=== PATIENT | male | born 1955 | race Caucasian/White ===

== ENCOUNTER 2018-02-03 07:00 | Day surgery (SDC) | payer OTHER ==
--- NOTE | 2018-02-01 15:40 | RAD REPORT ---
EXAM DESCRIPTION: RAD - Chest Pa And Lat (2 Views) - 02/01/2018 3:35 pm CLINICAL HISTORY: Coronary artery disease Chest pain. COMPARISON: No comparisons FINDINGS: The lungs are clear. The heart is normal in size. No displaced fractures. IMPRESSION: No acute or concerning finding suspected.
[2018-02-01 15:49] LABS: Absolute Lymphocytes (CBC) 1.4 K/uL (0.7-4.9); Absolute Monocytes 0.6 K/uL (0.1-1.3); Absolute Neutrophil 2.3 K/uL (1.8-8.0); Basophils % 1.1 % (0-1.3); Eosinophils % 8.7 % (0-4.4); Hematocrit 38.1 % (39.6-49.0); Lymphocytes % 29.7 % (15.3-44.8); MCH 30.9 pg (27.0-35.0); MCV 90.2 fL (80-100); MPV 8.7 fL (7.6-11.3); Monocytes % 13.2 % (3.3-12.3); RBC Red Blood Cell Count 4.23 M/uL (4.33-5.43)
[2018-02-01 16:06] LABS: BUN Blood Urea Nitrogen 9 mg/dL (6-20); Bicarbonate 27 mEq/L (21-31); Glucose Level 91 mg/dL (65-120); Potassium 4.1 mEq/L (3.6-5.0); Sodium Level 140 mEq/L (135-145)
[2018-02-01 16:07] LABS: Protime INR 0.92
--- OUTSIDE RECORDS SUMMARY | 2018-02-03 07:09 | XMS REPORT | Clinical Summary ---
:1955 Author Organization [facility] Address [address] [place] [address] Phone Care Team Providers Name Role Phone Unavailable Primary Care Provider Unavailable Allergies Active Allergy Reactions Severity Noted Date Comments Penicillins Other (See Comments) High 12/23/2017 unknown Current Medications Prescription Sig. Disp. Refills Start Date End Date Status simvastatin (ZOCOR) Take 20 mg by Active 20 MG tablet mouth nightly. isosorbide Take 30 mg by Active mononitrate (IMDUR) mouth daily. 30 MG 24 hr tablet amLODIPine Take 5 mg by Active (NORVASC) 5 MG mouth 2 (two) tablet times daily. clopidogrel Take 75 mg by Active (PLAVIX) 75 mg mouth daily. tablet metoprolol Take 50 mg by Active (TOPROL-XL) 50 MG mouth daily. 24 hr tablet aspirin 81 MG Take 81 mg by Active chewable tablet mouth daily. escitalopram Take 20 mg by Active oxalate (LEXAPRO) mouth daily. 20 MG tablet pantoprazole Take 40 mg by Active (PROTONIX) 40 MG mouth daily. tablet meloxicam (MOBIC) Take 15 mg by Active 15 MG tablet mouth daily. codeine-guaifenesin Take 5 mLs by Active (GUAIFENESIN AC) mouth 3 10-100 mg/5 mL (three) times liquid daily as needed for Cough. levoFLOXacin Take 500 mg 12/29/2017 Discontinued (LEVAQUIN) 500 MG by mouth tablet daily. doxycycline Take 1 14 capsule 0 12/29/2017 01/05/2018 (MONODOX) 100 MG capsule (100 capsule mg total) by mouth every 12 (twelve) hours for 7 days. Active Problems Problem Noted Date Bleeding from wound 12/30/2017 Abscess of left groin 12/26/2017 Staph aureus infection 12/26/2017 Hematoma 12/25/2017 Left groin mass 12/24/2017 Encounters Date Type Specialty Care Team Description 12/30/2017 - Emergency General Internal Steve Ng MD Bleeding from wound 12/31/2017 Medicine Leoncio Tyler, (Primary Dx);Abscess Shasha Arce MD of left groin;Left groin mass;Hematoma 12/25/2017 Anesthesia Event ReizerKelsey, WILLIAM 12/25/2017 Procedure Pass 12/25/2017 Surgery Lupillo Barr,GROIN MD Adilson 12/23/2017 - Hospital Encounter Cardiology Demetris, Left groin mass 12/29/2017 MD Kiki (Primary Dx);Left Jean-Claude, [place] groin pain;Coronary MD Kayla artery disease Celeste Enciso MD heart without angina pectoris, unspecified vessel or lesion type;Essential hypertension;Hyperlip idemia, unspecified hyperlipidemia type;Hematoma;Abscess of left groin after 02/02/2017 Social History Tobacco Use Types Packs/Day Years Used Date Never Smoker Smokeless Tobacco: Never Used Alcohol Use Drinks/Week oz/Week Comments Yes Sex Assigned at Date Recorded Not on file Last Filed Vital Signs Vital Sign Reading Time Taken Blood Pressure 121/80 12/31/2017 4:05 PM CDT Pulse 70 12/31/2017 4:05 PM CDT Temperature 35.6 C (96.1 F) 12/31/2017 4:05 PM CDT Respiratory Rate 18 12/31/2017 4:05 PM CDT Oxygen Saturation 99% 12/31/2017 4:05 PM CDT Inhaled Oxygen Concentration - - Weight 85.4 kg (188 lb 3.2 oz) 12/29/2017 8:04 AM CDT Height 167.6 cm (5' 6") 12/24/2017 3:20 AM CDT Body Mass Index 30.38 12/29/2017 8:04 AM CDT Plan of Treatment Not on file Implants Implanted Type Area Sandstone Splitter Device Expiration Model / Identifier Date Serial / Lot Flseal Vhsd Full Strlprep 10ml [id number] - Sna Cement/Fi Left: ROBLERO:BIOSCI 05/08/2019 [id number] / Implanted: Qty: 1 on 12/25/2017 by Lupillo Barr MD ller/Monica Ward NA / nima [id number] Procedures Procedure Name Priority Date/Time Associated Diagnosis Comments EXPLORATION,GROIN 12/25/2017 3:20 PM CDT Hematoma Special Needs REQ: AEAP after 02/02/2017 Results TRANSFUSION SERVICE REPORT - SCAN (12/31/2017 5:41 PM)Only the most recent of2 resultswithin the time period is included.CBC with platelet count + automated diff (12/31/2017 5:30 AM)Only the most recent of4 resultswithin the time period is included. Component Value Ref Range WBC 7.0 3.5 - 10.5 K/L RBC 3.04 (L) 4.63 - 6.08 M/L Hemoglobin 9.5 (L) 13.7 - 17.5 GM/DL Hematocrit 28.3 (L) 40.1 - 51.0 % MCV 93.1 (H) 79.0 - 92.2 fL MCH 31.3 25.7 - 32.2 pg MCHC 33.6 32.3 - 36.5 GM/DL RDW 12.4 11.6 - 14.4 % Platelets 280 150 - 450 K/CU MM MPV 9.6 9.4 - 12.4 fL nRBC 0 0 - 0 /100 WBC % Neutros 63 % % Lymphs 23 % % Monos 10 % % Eos 3 % % Baso 0 % # Neutros 4.39 1.78 - 5.38 K/L # Lymphs 1.59 1.32 - 3.57 K/L # Monos 0.72 0.30 - 0.82 K/L # Eos 0.23 0.04 - 0.54 K/L # Baso 0.03 0.01 - 0.08 K/L Immature Granulocytes-Relative 1 0 - 1 % Specimen Performing Laboratory Blood [facility] [address] [place] [address] CBC with platelet count + automated diff (12/31/2017 5:30 AM)Only the most recent of4 resultswithin the time period is included. Specimen Performing Laboratory Blood Narrative The following orders were created for panel order CBC with platelet count + automated diff. Procedure Abnormality Status --------- ------ CBC with platelet count ...[[id number]]AbnormalFinal result Please view results for these tests on the individual orders. Phosphorus (12/31/2017 5:30 AM) Component Value Ref Range Phosphorus 3.8 2.3 - 4.7 mg/dL Specimen Performing Laboratory Blood [address] [address] Magnesium (12/31/2017 5:30 AM) Component Value Ref Range Magnesium 2.4 1.6 - 2.6 mg/dL Specimen Performing Laboratory Blood [address] [address] Basic metabolic panel (12/31/2017 5:30 AM)Only the most recent of3 resultswithin the time period is included. Component Value Ref Range Sodium 137 136 - 145 meq/L Potassium 4.2 3.5 - 5.1 meq/L Chloride 106 98 - 107 meq/L CO2 26 22 - 29 meq/L BUN 12 7 - 21 mg/dL Creatinine 0.82 0.57 - 1.25 mg/dL Glucose 103 70 - 105 mg/dL Calcium 8.7 8.4 - 10.2 mg/dL EGFR 96Comment: ESTIMATED GFR IS NOT ACCURATE mL/min/1.73 sq m CREATININE CLEARANCE IN PREDICTING GLOMERULAR FILTRATION RATE. ESTIMATED GFR IS NOT APPLICABLE FOR DIALYSIS PATIENTS. Specimen Performing Laboratory Blood [address] [address] Hemoglobin and hematocrit (12/31/2017 12:08 AM) Component Value Ref Range Hemoglobin 9.4 (L) 13.7 - 17.5 GM/DL Hematocrit 27.5 (L) 40.1 - 51.0 % Specimen Performing Laboratory Blood - Arm, Right [address] [address] CTA lower extremity right (12/30/2017 10:40 PM) Specimen Performing Laboratory GE RIS Narrative FINAL REPORT CLINICAL HISTORY: Subcutaneous infection in left inguinal region, today with new bleeding. Please evaluate for source of bleeding. COMPARISON: 12/23/2017 FINDINGS: Multiple axial images of the pelvis and legs were performed from the umbilicus to the distal femurs after the uncomplicated administration of IV contrast utilizing a CT arteriogram protocol. Precontrast images of the pelvis were performed. Coronal and sagittal reformats were created. 3-D imaging on an independent workstation was also performed for optimal visualization of the arterial system in accordance with the aortogram protocol. Vascular: There is diffuse atherosclerotic calcification of the aorta and lower extremity arteries, similar to previous. There is no aortic dissection or aneurysm. No periaortic hematoma is present. No focal arterial occlusion noted. Vascular measurements are unchanged from previous colon the abdominal aorta measures 1.5 cm above the bifurcation. The right common iliac artery measures 1.2 cm. The left common iliac artery measures 11 mm. The aortic and iliac bifurcations are patent. There is scattered atherosclerotic luminal narrowing of both common femoral and superficial femoral arteries. There has been interval gauze packing of the left inguinal region where a subcutaneous fluid collection has been in size. There is subcutaneous fat stranding in the region but no organized fluid collection to suggest hematoma or abscess. There are several tiny vessels arising from the common femoral artery in the subcutaneous tissues surrounding of the gauze packing but no underlying pseudoaneurysm is identified and the source of bleeding is not definitively seen. Several prominent lymph nodes in the left inguinal region are redemonstrated. The visualized bowel is unremarkable. The appendix is normal. The bladder is distended with urine but otherwise normal. The prostate gland, rectum and ischiorectal fossa are unremarkable. There is no acute bony abnormality. IMPRESSION: Interval incision in the left inguinal region, now with gauze packing. There is soft tissue fat stranding in the subcutaneous tissues surrounding the open wound but no focal, organized fluid collection to suggest abscess or hematoma. There is no underlying pseudoaneurysm or definitively identified source of bleeding. Atherosclerotic disease as previously described. Signed: Eduardo Ramirez MD Report Verified Date/Time:12/30/2017 23:23:16 Reading Location: [address] Reading Room Procedure Note Interface, External Ris In - 12/30/2017 11:25 PM CDT FINAL REPORT CLINICAL HISTORY: Subcutaneous infection in left inguinal region, today with new bleeding. Please evaluate for source of bleeding. COMPARISON: 12/23/2017 FINDINGS: Multiple axial images of the pelvis and legs were performed from the umbilicus to the distal femurs after the uncomplicated administration of IV contrast utilizing a CT arteriogram protocol. Precontrast images of the pelvis were performed. Coronal and sagittal reformats were created. 3-D imaging on an independent workstation was also performed for optimal visualization of the arterial system in accordance with the aortogram protocol. Vascular: There is diffuse atherosclerotic calcification of the aorta and lower extremity arteries, similar to previous. There is no aortic dissection or aneurysm. No periaortic hematoma is present. No focal arterial occlusion noted. Vascular measurements are unchanged from previous colon the abdominal aorta measures 1.5 cm above the bifurcation. The right common iliac artery measures 1.2 cm. The left common iliac artery measures 11 mm. The aortic and iliac bifurcations are patent. There is scattered atherosclerotic luminal narrowing of both common femoral and superficial femoral arteries. There has been interval gauze packing of the left inguinal region where a subcutaneous fluid collection has been in size. There is subcutaneous fat stranding in the region but no organized fluid collection to suggest hematoma or abscess. There are several tiny vessels arising from the common femoral artery in the subcutaneous tissues surrounding of the gauze packing but no underlying pseudoaneurysm is identified and the source of bleeding is not definitively seen. Several prominent lymph nodes in the left inguinal region are redemonstrated. The visualized bowel is unremarkable. The appendix is normal. The bladder is distended with urine but otherwise normal. The prostate gland, rectum and ischiorectal fossa are unremarkable. There is no acute bony abnormality. IMPRESSION: Interval incision in the left inguinal region, now with gauze packing. There is soft tissue fat stranding in the subcutaneous tissues surrounding the open wound but no focal, organized fluid collection to suggest abscess or hematoma. There is no underlying pseudoaneurysm or definitively identified source of bleeding. Atherosclerotic disease as previously described. Signed: Eduardo Ramirez MD Report Verified Date/Time: 12/30/2017 23:23:16 Reading Location: [address] Reading Room lower extremity left (12/30/2017 10:40 PM) Specimen Performing Laboratory [facility] Narrative FINAL REPORT CLINICAL HISTORY: Subcutaneous infection in left inguinal region, today with new bleeding. Please evaluate for source of bleeding. COMPARISON: 12/23/2017 FINDINGS: Multiple axial images of the pelvis and legs were performed from the umbilicus to the distal femurs after the uncomplicated administration of IV contrast utilizing a CT arteriogram protocol. Precontrast images of the pelvis were performed. Coronal and sagittal reformats were created. 3-D imaging on an independent workstation was also performed for optimal visualization of the arterial system in accordance with the aortogram protocol. Vascular: There is diffuse atherosclerotic calcification of the aorta and lower extremity arteries, similar to previous. There is no aortic dissection or aneurysm. No periaortic hematoma is present. No focal arterial occlusion noted. Vascular measurements are unchanged from previous colon the abdominal aorta measures 1.5 cm above the bifurcation. The right common iliac artery measures 1.2 cm. The left common iliac artery measures 11 mm. The aortic and iliac bifurcations are patent. There is scattered atherosclerotic luminal narrowing of both common femoral and superficial femoral arteries. There has been interval gauze packing of the left inguinal region where a subcutaneous fluid collection has been in size. There is subcutaneous fat stranding in the region but no organized fluid collection to suggest hematoma or abscess. There are several tiny vessels arising from the common femoral artery in the subcutaneous tissues surrounding of the gauze packing but no underlying pseudoaneurysm is identified and the source of bleeding is not definitively seen. Several prominent lymph nodes in the left inguinal region are redemonstrated. The visualized bowel is unremarkable. The appendix is normal. The bladder is distended with urine but otherwise normal. The prostate gland, rectum and ischiorectal fossa are unremarkable. There is no acute bony abnormality. IMPRESSION: Interval incision in the left inguinal region, now with gauze packing. There is soft tissue fat stranding in the subcutaneous tissues surrounding the open wound but no focal, organized fluid collection to suggest abscess or hematoma. There is no underlying pseudoaneurysm or definitively identified source of bleeding. Atherosclerotic disease as previously described. Signed: Eduardo Ramirez MD Report Verified Date/Time:12/30/2017 23:23:16 Reading Location: [address] Reading Room Procedure Note Interface, External Ris In - 12/30/2017 11:25 PM CDT FINAL REPORT CLINICAL HISTORY: Subcutaneous infection in left inguinal region, today with new bleeding. Please evaluate for source of bleeding. COMPARISON: 12/23/2017 FINDINGS: Multiple axial images of the pelvis and legs were performed from the umbilicus to the distal femurs after the uncomplicated administration of IV contrast utilizing a CT arteriogram protocol. Precontrast images of the pelvis were performed. Coronal and sagittal reformats were created. 3-D imaging on an independent workstation was also performed for optimal visualization of the arterial system in accordance with the aortogram protocol. Vascular: There is diffuse atherosclerotic calcification of the aorta and lower extremity arteries, similar to previous. There is no aortic dissection or aneurysm. No periaortic hematoma is present. No focal arterial occlusion noted. Vascular measurements are unchanged from previous colon the abdominal aorta measures 1.5 cm above the bifurcation. The right common iliac artery measures 1.2 cm. The left common iliac artery measures 11 mm. The aortic and iliac bifurcations are patent. There is scattered atherosclerotic luminal narrowing of both common femoral and superficial femoral arteries. There has been interval gauze packing of the left inguinal region where a subcutaneous fluid collection has been in size. There is subcutaneous fat stranding in the region but no organized fluid collection to suggest hematoma or abscess. There are several tiny vessels arising from the common femoral artery in the subcutaneous tissues surrounding of the gauze packing but no underlying pseudoaneurysm is identified and the source of bleeding is not definitively seen. Several prominent lymph nodes in the left inguinal region are redemonstrated. The visualized bowel is unremarkable. The appendix is normal. The bladder is distended with urine but otherwise normal. The prostate gland, rectum and ischiorectal fossa are unremarkable. There is no acute bony abnormality. IMPRESSION: Interval incision in the left inguinal region, now with gauze packing. There is soft tissue fat stranding in the subcutaneous tissues surrounding the open wound but no focal, organized fluid collection to suggest abscess or hematoma. There is no underlying pseudoaneurysm or definitively identified source of bleeding. Atherosclerotic disease as previously described. Signed: Eduardo Ramirez MD Report Verified Date/Time: 12/30/2017 23:23:16 Reading Location: [address] Reading Room pelvis with IV contrast (12/30/2017 10:40 PM) Specimen Performing Laboratory [facility] Narrative FINAL REPORT CLINICAL HISTORY: Subcutaneous infection in left inguinal region, today with new bleeding. Please evaluate for source of bleeding. COMPARISON: 12/23/2017 FINDINGS: Multiple axial images of the pelvis and legs were performed from the umbilicus to the distal femurs after the uncomplicated administration of IV contrast utilizing a CT arteriogram protocol. Precontrast images of the pelvis were performed. Coronal and sagittal reformats were created. 3-D imaging on an independent workstation was also performed for optimal visualization of the arterial system in accordance with the aortogram protocol. Vascular: There is diffuse atherosclerotic calcification of the aorta and lower extremity arteries, similar to previous. There is no aortic dissection or aneurysm. No periaortic hematoma is present. No focal arterial occlusion noted. Vascular measurements are unchanged from previous colon the abdominal aorta measures 1.5 cm above the bifurcation. The right common iliac artery measures 1.2 cm. The left common iliac artery measures 11 mm. The aortic and iliac bifurcations are patent. There is scattered atherosclerotic luminal narrowing of both common femoral and superficial femoral arteries. There has been interval gauze packing of the left inguinal region where a subcutaneous fluid collection has been in size. There is subcutaneous fat stranding in the region but no organized fluid collection to suggest hematoma or abscess. There are several tiny vessels arising from the common femoral artery in the subcutaneous tissues surrounding of the gauze packing but no underlying pseudoaneurysm is identified and the source of bleeding is not definitively seen. Several prominent lymph nodes in the left inguinal region are redemonstrated. The visualized bowel is unremarkable. The appendix is normal. The bladder is distended with urine but otherwise normal. The prostate gland, rectum and ischiorectal fossa are unremarkable. There is no acute bony abnormality. IMPRESSION: Interval incision in the left inguinal region, now with gauze packing. There is soft tissue fat stranding in the subcutaneous tissues surrounding the open wound but no focal, organized fluid collection to suggest abscess or hematoma. There is no underlying pseudoaneurysm or definitively identified source of bleeding. Atherosclerotic disease as previously described. Signed: Eduardo Ramirez MD Report Verified Date/Time:12/30/2017 23:23:16 Reading Location: [address] Reading Room Procedure Note Interface, External Ris In - 12/30/2017 11:25 PM CDT FINAL REPORT CLINICAL HISTORY: Subcutaneous infection in left inguinal region, today with new bleeding. Please evaluate for source of bleeding. COMPARISON: 12/23/2017 FINDINGS: Multiple axial images of the pelvis and legs were performed from the umbilicus to the distal femurs after the uncomplicated administration of IV contrast utilizing a CT arteriogram protocol. Precontrast images of the pelvis were performed. Coronal and sagittal reformats were created. 3-D imaging on an independent workstation was also performed for optimal visualization of the arterial system in accordance with the aortogram protocol. Vascular: There is diffuse atherosclerotic calcification of the aorta and lower extremity arteries, similar to previous. There is no aortic dissection or aneurysm. No periaortic hematoma is present. No focal arterial occlusion noted. Vascular measurements are unchanged from previous colon the abdominal aorta measures 1.5 cm above the bifurcation. The right common iliac artery measures 1.2 cm. The left common iliac artery measures 11 mm. The aortic and iliac bifurcations are patent. There is scattered atherosclerotic luminal narrowing of both common femoral and superficial femoral arteries. There has been interval gauze packing of the left inguinal region where a subcutaneous fluid collection has been in size. There is subcutaneous fat stranding in the region but no organized fluid collection to suggest hematoma or abscess. There are several tiny vessels arising from the common femoral artery in the subcutaneous tissues surrounding of the gauze packing but no underlying pseudoaneurysm is identified and the source of bleeding is not definitively seen. Several prominent lymph nodes in the left inguinal region are redemonstrated. The visualized bowel is unremarkable. The appendix is normal. The bladder is distended with urine but otherwise normal. The prostate gland, rectum and ischiorectal fossa are unremarkable. There is no acute bony abnormality. IMPRESSION: Interval incision in the left inguinal region, now with gauze packing. There is soft tissue fat stranding in the subcutaneous tissues surrounding the open wound but no focal, organized fluid collection to suggest abscess or hematoma. There is no underlying pseudoaneurysm or definitively identified source of bleeding. Atherosclerotic disease as previously described. Signed: Eduardo Ramirez MD Report Verified Date/Time: 12/30/2017 23:23:16 Reading Location: [address] Reading Room Type and screen, automated ([facility] and [facility] only) (12/30/2017 5:21 PM)Only the most recent of2 resultswithin the time period is included. Component Value Ref Range ABO/RH AUTOMATED (BEAKER) A POSITIVE Ab Scrn NEGATIVE Specimen Performing Laboratory Blood [address] [address] POC-Lactic Acid, Venous (12/30/2017 4:34 PM) Component Value Ref Range POC-Lactic Acid, Venous 1.1Comment: TESTED AT [address] 0.9 - 1.7 mmol/L [facility] [address] Specimen Performing Laboratory Blood [address] [address] PT/aPTT (12/30/2017 4:32 PM)Only the most recent of2 resultswithin the time period is included. Component Value Ref Range Protime 13.5 11.7 - 14.7 seconds INR 1.0 <=5.9 PTT 26.8 22.5 - 36.0 seconds Specimen Performing Laboratory Blood [address] [address] Narrative RECOMMENDED COUMADIN/WARFARIN INR THERAPY RANGES STANDARD DOSE: 2.0 - 3.0 Includes: PROPHYLAXIS for venous thrombosis, systemic embolization; TREATMENT for venous thrombosis and/or pulmonary embolus. HIGH RISK: Target INR is 2.5-3.5 for patients with mechanical heart valves. Comprehensive metabolic panel (12/30/2017 4:32 PM)Only the most recent of2 resultswithin the time period is included. Component Value Ref Range Protein, Total 7.1Comment: Specimen slightly hemolyzed 6.0 - 8.3 gm/dL Albumin 4.1Comment: Specimen slightly hemolyzed 3.5 - 5.0 g/dL Alkaline Phosphatase 72 40 - 150 U/L Total Bilirubin 0.5Comment: Specimen slightly hemolyzed 0.2 - 1.2 mg/dL Sodium 135 (L) 136 - 145 meq/L Potassium 4.2Comment: Specimen slightly hemolyzed 3.5 - 5.1 meq/L Chloride 104 98 - 107 meq/L CO2 21 (L) 22 - 29 meq/L BUN 15 7 - 21 mg/dL Creatinine 0.91Comment: Specimen slightly hemolyzed 0.57 - 1.25 mg/dL Glucose 114 (H) 70 - 105 mg/dL Calcium 9.3 8.4 - 10.2 mg/dL AST 23Comment: Specimen slightly hemolyzed 5 - 34 U/L ALT 29Comment: Specimen slightly hemolyzed 6 - 55 U/L EGFR 85Comment: ESTIMATED GFR IS NOT ACCURATE mL/min/1.73 sq m CREATININE CLEARANCE IN PREDICTING GLOMERULAR FILTRATION RATE. ESTIMATED GFR IS NOT APPLICABLE FOR DIALYSIS PATIENTS. Specimen Performing Laboratory Blood [address] [address] Vancomycin level, trough (12/26/2017 3:34 PM) Component Value Ref Range Vancomycin Tr 11.5 10.0 - 20.0 ug/mL Specimen Performing Laboratory Blood [address] [address] Narrative If trough > 20 hold next dose and notify pharmacist. Tissue Exam (12/25/2017 12:53 PM) Component Value Ref Range Case Report Surgical Pathology Report Case: [id number] Authorizing Provider:Lupillo Barr,Collected: 12/25/2017 1253 MD Ordering Location: [facility] Received: 12/25/2017 1321 SERVICES Pathologist: Twyla Snyder MD Specimen:Lymph Node, Left Groin Lymph Node DIAGNOSIS SOFT TISSUE, LEFT GROIN, EXCISION: - FAT NECROSIS WITH ACUTE AND CHRONIC INFLAMMATION, FOCAL ABSCESS FORMATION, GRANULATION TISSUE, AND REACTIVE CHANGES - TWO BENIGN LYMPH NODES (0/2) Signing Pathologist Direct Phone Line: [phone] CPT Code(s) 18759 CLINICAL HISTORY Hematoma SPECIMEN SOURCE Left groin lymph node GROSS DESCRIPTION Received in formalin labeled "lymph node", description " left groin lymph node" are two irregular pink-foster to yellow lymph nodes each measuring 3.5 x 2.5 x 1.5 cm. Sectioning reveals a pink-foster to yellow , lobulated, fatty cut surface. No firm areas are identified. The specimen is entirely submitted as follows: A1-A6, one serially sectioned lymph node; A7-A10, one serially sectioned lymph node. DB/ew MICROSCOPIC DESCRIPTION Performed. Specimen Performing Laboratory Tissue - Lymph Node [address] [address] Anaerobic culture (12/25/2017 12:51 PM) Component Value Ref Range Result No anaerobes isolated Specimen Performing Laboratory Wound - Groin, Left [address] [address] Surgically obtained culture + gram stain (12/25/2017 12:51 PM) Component Value Ref Range Result 3+ Staphylococcus aureus (A) Result 1+ Staphylococcus aureus (A)Comment: of a second type Gram Stain Result 3+ WBCs Gram Stain Result 1+ gram positive cocci in pairs and clusters Specimen Performing Laboratory Wound - Groin, [address] [address] Organism Antibiotic Method Susceptibility Staphylococcus aureus Clindamycin 0.25: Susceptible Staphylococcus aureus Erythromycin 0.5: Susceptible Staphylococcus aureus Linezolid 2: Susceptible Staphylococcus aureus Oxacillin 0.5: Susceptible Staphylococcus aureus Rifampin <=0.5: Susceptible Staphylococcus aureus Tetracycline <=1: Susceptible Staphylococcus aureus Trimethoprim + Sulfamethoxazole <=10: Susceptible Staphylococcus aureus Vancomycin 1: Susceptible Staphylococcus aureus Clindamycin 0.25: Susceptible Staphylococcus aureus Erythromycin <=0.25: Susceptible Staphylococcus aureus Linezolid 2: Susceptible Staphylococcus aureus Oxacillin 0.5: Susceptible Staphylococcus aureus Rifampin <=0.5: Susceptible Staphylococcus aureus Tetracycline <=1: Susceptible Staphylococcus aureus Trimethoprim + Sulfamethoxazole <=10: Susceptible Staphylococcus aureus Vancomycin <=0.5: Susceptible Fungus culture + smear (12/25/2017 12:51 PM) Component Value Ref Range Result No fungus isolated in 28 days Fungus Smear No fungi seen Specimen Performing Laboratory Wound - Groin, [address] [address] CBC (Hemogram only) (12/25/2017 8:30 AM) Component Value Ref Range WBC 6.4 3.5 - 10.5 K/L RBC 4.04 (L) 4.63 - 6.08 M/L Hemoglobin 12.4 (L) 13.7 - 17.5 GM/DL Hematocrit 37.3 (L) 40.1 - 51.0 % MCV 92.3 (H) 79.0 - 92.2 fL MCH 30.7 25.7 - 32.2 pg MCHC 33.2 32.3 - 36.5 GM/DL RDW 12.1 11.6 - 14.4 % Platelets 247 150 - 450 K/CU MM MPV 10.0 9.4 - 12.4 fL nRBC 0 0 - 0 /100 WBC Specimen Performing Laboratory Blood [address] [address] aPTT (12/25/2017 7:58 AM) Component Value Ref Range PTT 20.5 (L) 22.5 - 36.0 seconds Specimen Performing Laboratory Blood [address] [address] Prothrombin time/INR (12/25/2017 7:58 AM) Component Value Ref Range Protime 13.9 11.7 - 14.7 seconds INR 1.1 <=5.9 Specimen Performing Laboratory Blood [address] [address] Narrative RECOMMENDED COUMADIN/WARFARIN INR THERAPY RANGES STANDARD DOSE: 2.0 - 3.0 Includes: PROPHYLAXIS for venous thrombosis, systemic embolization; TREATMENT for venous thrombosis and/or pulmonary embolus. HIGH RISK: Target INR is 2.5-3.5 for patients with mechanical heart valves. PERIPHERAL VASCULAR REPORT - SCAN (12/24/2017 11:20 AM)Pseudoaneurysm Groin Doppler Left (12/24/2017 8:04 AM) Component Value Ref Range Ejection Fraction Specimen Performing Laboratory [facility] CPACS Impressions Right Impression Not ordered. Left Impression 1. There is no pseudoaneurysm visualized. 2. There is a non vascular structure at the point of interest with the following dimensions 3.4 cm x 2.0cm x 2.43 cm. 3. There is no venous obstruction or arteriovenous fistula visualized. 4. The common femoral artery flow is biphasic with a velocity of 73 cm/sec. (within normal range). Conclusions Summary Duplex imaging of the left groin area was performed. The vessels were adequately visualized. There was no evidence of a pseudoaneurysm, venous obstruction or arteriovenous fistula in the left groin area. There was a non vascular structure at the point of interest with the following dimensions 3.4 cm x 2.0cm x 2.43 cm, consistent with a hematoma. Signature Velocities are measured in cm/s ; Diameters are measured in cm Narrative [facility] - Pseudoaneurysm Survey Demographics Patient NameHAYDEN ABREUDate of Study 12/24/2017 62 Visit [id number] Male of 1955 Number Referring Felix Lora Molly FELRoom Number 2006 Physician Drawer Upfitter Kenny Bailey. InterpretingMoshe Oneal RVT, Jama VICK, [facility] Procedure Type of Study: Pseudoaneurysm: PSEUDOANEURYSM, GROIN DOPPLER LEFT. Indications for Study:Evaluate for hematoma . Patient Status:TODAY. Study Location:Vascular Lab. Technical Quality:Adequate visualization. Procedure Note Interface, External Ris In - 12/24/2017 10:32 AM CDT [facility] - Pseudoaneurysm Survey Demographics Patient Name HAYDEN ABREU Date of Study 12/24/2017 Age 62 Visit Number [id number] Gender Male Date of 1955 Number Referring Felix Barnes DAIJA Room Number 2006 Physician Drawer Upfitter Kenny Bailey. Interpreting Moshe Oneal RVT, JENNIFER Tatum MD, JULIANNE Procedure Type of Study: Pseudoaneurysm: PSEUDOANEURYSM, GROIN DOPPLER LEFT. Indications for Study:Evaluate for hematoma . Patient Status:TODAY. Study Location:Vascular Lab. Technical Quality:Adequate visualization. Impressions Right Impression Not ordered. Left Impression 1. There is no pseudoaneurysm visualized. 2. There is a non vascular structure at the point of interest with the following dimensions 3.4 cm x 2.0cm x 2.43 cm. 3. There is no venous obstruction or arteriovenous fistula visualized. 4. The common femoral artery flow is biphasic with a velocity of 73 cm/sec. (within normal range). Conclusions Summary Duplex imaging of the left groin area was performed. The vessels were adequately visualized. There was no evidence of a pseudoaneurysm, venous obstruction or arteriovenous fistula in the left groin area. There was a non vascular structure at the point of interest with the following dimensions 3.4 cm x 2.0cm x 2.43 cm, consistent with a hematoma. Signature Velocities are measured in cm/s ; Diameters are measured in cm CTA AAA and Runoff (12/23/2017 10:46 PM) Specimen Performing Laboratory Spare to Share Addendum Begins REPORT STATUS:A 3-D imaging on an independent workstation was also performed for optimal visualization of the arterial system in accordance with the aortogram protocol. Signed: Eduardo Ramirez MD Report Verified Date/Time:12/25/2017 04:46:21 Reading Location: [address] Reading Room Addendum Ends FINAL REPORT CLINICAL HISTORY: Status post angiography with left groin hematoma and swelling FINDINGS: Multiple axial images of the abdomen and pelvis were performed before and after the uncomplicated administration of IV contrast. Postcontrast run off images of the lower extremities was performed. Coronal and sagittal reformats were created. Oral contrast was not given. This exam was performed according to our departmental dose-optimization program, which includes automated exposure control, adjustment of the mA and/or kV according to patient size and/or use of the iterative reconstruction technique. Comparison:None. Vascular: There is a heterogeneous, nonorganized left inguinal subcutaneous fluid collection, probably a hematoma given the patient's history. This nonorganized fluid collection is surrounded by subcutaneous fat stranding and measures approximately 5.2 x 4.2 cm. There are several adjacent cysts and enhancing lymph nodes in the left inguinal region. A small enhancing focus at the superficial margin of the collection measures 8 mm and may reflect an enhancing lymph node or a small pseudoaneurysm. It is not a significant distance from the underlying common femoral and superficial femoral arteries. There is diffuse atherosclerotic calcification. No aortic aneurysm or dissection is present. At the level of the celiac axis origin the aorta measures 2.3 cm. At the SMA origin and it measures 2.1 cm. At the right renal artery origin and it measures 1.8 cm. Just above the bifurcation it measures 1.5 cm. The celiac axis and SMA are normal in distribution without significant stenosis. There are single renal arteries bilaterally. The ERICH and aortic bifurcation are patent. Right lower extremity: The right common iliac artery measures 11 mm. The iliac bifurcation is patent. The internal iliac artery demonstrates scattered atherosclerotic calcification but appears patent, as do its major branches. The right external iliac artery is patent without significant stenosis. There is atherosclerotic calcification of the common femoral bifurcation. Both the deep femoral and superficial femoral arteries are patent, however, there is a significant stenosis of the proximal portion of the right common femoral artery of greater than 80%. A distal common femoral artery stent is in place and appears patent. The popliteal artery demonstrates significant atherosclerotic calcification which limits evaluation of its patency, however, it appears grossly patent and the trifurcation appears patent. The anterior tibial artery contrast column diminishes significantly at the mid to distal lower leg. There is definite 2 vessel runoff to the foot. Left lower extremity: The left iliac bifurcation is patent. The left internal iliac artery is patent as are its major branches. The left external iliac artery is patent without focal stenosis. There is significant atherosclerotic calcification of the common femoral artery with approximately 50% stenosis at its mid to distal portion. The common femoral artery bifurcation is patent but there is mixed density plaque resulting in 75% narrowing of the proximal superficial femoral artery. Scattered atherosclerotic calcification and luminal narrowing are noted along the length of the superficial femoral artery and at the popliteal artery. The trifurcation is patent and there is scattered atherosclerotic calcification limiting evaluation of the luminal enhancement of the lower leg, there appears to be three-vessel runoff to the ankle, though the peroneal artery appears diminished in its distal portion. Delayed images demonstrate improved enhancement below the knee. Lower chest: Clear lungs. No pleural effusion or pneumothorax. Liver: Partially included. No significant findings where visualized. Gallbladder and biliary tree: No significant findings. Spleen: No significant findings. Adrenal Glands: No significant findings. Kidneys and ureters: No significant findings. Stomach and Duodenum: Partially visualized, moderate hiatal hernia. Pancreas: No significant findings. Bowel: No significant findings. Appendix: Normal. Bladder: No significant findings. Reproductive organs: No significant findings. Other: No free air, fluid or adenopathy Skeleton: No acute bony abnormality. IMPRESSION: Ill-defined subcutaneous fluid collection in the left inguinal region, probably post procedure hematoma, measuring approximately 5.2 x 5.4 cm. There are several adjacent lymph nodes. A small focus of enhancement at the superficial margin of the ill-defined fluid collection measures 8 mm and may reflect an enhancing lymph node but a small pseudoaneurysm from a superficial vessel could be present. Evaluation with arterial Doppler ultrasound can be performed. Atherosclerotic disease, as described. Partially visualized, moderate hiatal hernia. Signed: Eduardo Ramirez MD Report Verified Date/Time:12/23/2017 23:59:41 Reading Location: [address] Reading Room Procedure Note Interface, External Ris In - 12/25/2017 4:48 AM CDT Addendum Begins REPORT STATUS:A 3-D imaging on an independent workstation was also performed for optimal visualization of the arterial system in accordance with the aortogram protocol. Signed: Eduardo Ramirez MD Report Verified Date/Time: 12/25/2017 04:46:21 Reading Location: [address] Reading Room Addendum Ends FINAL REPORT CLINICAL HISTORY: Status post angiography with left groin hematoma and swelling FINDINGS: Multiple axial images of the abdomen and pelvis were performed before and after the uncomplicated administration of IV contrast. Postcontrast run off images of the lower extremities was performed. Coronal and sagittal reformats were created. Oral contrast was not given. This exam was performed according to our departmental dose-optimization program, which includes automated exposure control, adjustment of the mA and/or kV according to patient size and/or use of the iterative reconstruction technique. Comparison:None. Vascular: There is a heterogeneous, nonorganized left inguinal subcutaneous fluid collection, probably a hematoma given the patient's history. This nonorganized fluid collection is surrounded by subcutaneous fat stranding and measures approximately 5.2 x 4.2 cm. There are several adjacent cysts and enhancing lymph nodes in the left inguinal region. A small enhancing focus at the superficial margin of the collection measures 8 mm and may reflect an enhancing lymph node or a small pseudoaneurysm. It is not a significant distance from the underlying common femoral and superficial femoral arteries. There is diffuse atherosclerotic calcification. No aortic aneurysm or dissection is present. At the level of the celiac axis origin the aorta measures 2.3 cm. At the SMA origin and it measures 2.1 cm. At the right renal artery origin and it measures 1.8 cm. Just above the bifurcation it measures 1.5 cm. The celiac axis and SMA are normal in distribution without significant stenosis. There are single renal arteries bilaterally. The ERICH and aortic bifurcation are patent. Right lower extremity: The right common iliac artery measures 11 mm. The iliac bifurcation is patent. The internal iliac artery demonstrates scattered atherosclerotic calcification but appears patent, as do its major branches. The right external iliac artery is patent without significant stenosis. There is atherosclerotic calcification of the common femoral bifurcation. Both the deep femoral and superficial femoral arteries are patent, however, there is a significant stenosis of the proximal portion of the right common femoral artery of greater than 80%. A distal common femoral artery stent is in place and appears patent. The popliteal artery demonstrates significant atherosclerotic calcification which limits evaluation of its patency, however, it appears grossly patent and the trifurcation appears patent. The anterior tibial artery contrast column diminishes significantly at the mid to distal lower leg. There is definite 2 vessel runoff to the foot. Left lower extremity: The left iliac bifurcation is patent. The left internal iliac artery is patent as are its major branches. The left external iliac artery is patent without focal stenosis. There is significant atherosclerotic calcification of the common femoral artery with approximately 50% stenosis at its mid to distal portion. The common femoral artery bifurcation is patent but there is mixed density plaque resulting in 75% narrowing of the proximal superficial femoral artery. Scattered atherosclerotic calcification and luminal narrowing are noted along the length of the superficial femoral artery and at the popliteal artery. The trifurcation is patent and there is scattered atherosclerotic calcification limiting evaluation of the luminal enhancement of the lower leg, there appears to be three-vessel runoff to the ankle, though the peroneal artery appears diminished in its distal portion. Delayed images demonstrate improved enhancement below the knee. Lower chest: Clear lungs. No pleural effusion or pneumothorax. Liver: Partially included. No significant findings where visualized. Gallbladder and biliary tree: No significant findings. Spleen: No significant findings. Adrenal Glands: No significant findings. Kidneys and ureters: No significant findings. Stomach and Duodenum: Partially visualized, moderate hiatal hernia. Pancreas: No significant findings. Bowel: No significant findings. Appendix: Normal. Bladder: No significant findings. Reproductive organs: No significant findings. Other: No free air, fluid or adenopathy Skeleton: No acute bony abnormality. IMPRESSION: Ill-defined subcutaneous fluid collection in the left inguinal region, probably post procedure hematoma, measuring approximately 5.2 x 5.4 cm. There are several adjacent lymph nodes. A small focus of enhancement at the superficial margin of the ill-defined fluid collection measures 8 mm and may reflect an enhancing lymph node but a small pseudoaneurysm from a superficial vessel could be present. Evaluation with arterial Doppler ultrasound can be performed. Atherosclerotic disease, as described. Partially visualized, moderate hiatal hernia. Signed: Eduardo Ramirez MD Report Verified Date/Time: 12/23/2017 23:59:41 Reading Location: [address] Reading Room Urinalysis w/Microscopic + Reflex to Culture (12/23/2017 9:09 PM) Component Value Ref Range Color, UA Yellow Clarity, UA Clear Specific [place], UA 1.007 1.001 - 1.035 pH, UA 5.0 5.0 - 8.0 Protein, UA Negative Negative Glucose, UA Negative Negative Ketones, UA Negative Negative Bilirubin, UA Negative Negative Blood, UA Trace (A) Negative Nitrite, UA Negative Negative Leukocytes, UA Negative Negative Urobilinogen, UA 0.2 0.2 - 1.0 mg/dL RBC, UA <1 /HPF WBC, UA 3 /HPF Mucus Rare Squam Epithel, UA 1 /HPF Specimen Source Specimen Performing Laboratory Urine [facility] [address] [address] Manual Differential (12/23/2017 9:08 PM) Component Value Ref Range % Neutros 78 % % Lymphs 8 % % Monos 12 % % Atypical Lymphs 2 (H) 0 - 0 % # Neutros 8.03 (H) 1.78 - 5.38 K/ul # Lymphs 0.82 (L) 1.32 - 3.57 K/ul # Monos 1.24 (H) 0.30 - 0.82 K/uL # Atypical Lymphs 0.21 (H) 0.00 - 0.00 K/uL Total Counted 100 RBC Morphology Normal Smudge Cells Present Giant Platelet Present Platelet Conc Adequate Specimen Performing Laboratory Blood - Arm, [place] [id number] Narrative Received comment: User comments: Slide comments: Lactic acid, venous, whole blood (12/23/2017 9:08 PM) Component Value Ref Range Lactate, Venous 1.2 0.5 - 2.2 mmol/L Specimen Performing Laboratory Blood - Arm, [address] [address] Narrative Effective 12/19/2015: Units/Reference Range Change New: 0.5-2.2 mmol/LPrevious: 5-20 mg/dL after 02/02/2017
--- OUTSIDE RECORDS SUMMARY | 2018-02-03 07:10 | XMS REPORT ---
:1955 [facility] Address [address] [place] [address] [place] [address] Care Team Providers Name Role Phone CHANDLER KHAN Unavailable Unavailable PLACIDO, ADEDOYIN Unavailable Unavailable Problems This patient has no known problems. Allergies, Adverse Reactions, Alerts This patient has no known allergies or adverse reactions. Medications This patient has no known medications. Results Test Description Test Time Test Comments Text Results Atomic Results Result Comments FUNGUS CULTURE + SMEAR 2018-01-23 13:20:00 Test Item Value Reference Range Comments CULTURE (BEAKER) (test jupw=5907) No fungus isolated in 28 days FUNGUS SMEAR (BEAKER) (test bavg=7644) No fungi seen TISSUE [id number] 17:44:00Surgical Pathology Report Case: [id number] Authorizing Provider: Lupillo Barr, Collected: 12/25/2017 1253 OrderingLocation: [facility] Received: 2017 1321 SERVICES Pathologist: Twyla Snyder MD Specimen: Lymph Node, Left Groin Lymph Node SOFT TISSUE, LEFT GROIN, EXCISION: - FAT NECROSIS WITH ACUTE AND CHRONIC INFLAMMATION, FOCAL ABSCESS FORMATION, GRANULATION TISSUE, AND REACTIVE CHANGES - TWO BENIGN LYMPH NODES (0/2) Signing Pathologist Direct Phone Line: [phone] groin lymph node Received in formalin labeled "lymph node", description "left groin lymph node" are two irregular pink-foster to yellow lymph nodes each measuring 3.5 x 2.5 x 1.5 cm. Sectioning reveals a pink-foster to yellow , lobulated, fatty cut surface. No firm areas are identified.The specimen isentirely submitted as follows: A1-A6, one serially sectioned lymph node; A7- A10, one serially sectioned lymph node. DB/ewPerformed.[id number] 06: 54:00 Test Item Value Reference Range Comments PHOSPHORUS (BEAKER) (test dwzy=501) 3.8 mg/dL 2.3-4.7 [id number] 06:54:00 Test Item Value Reference Range Comments MAGNESIUM (BEAKER) (test piin=823) 2.4 mg/dL 1.6-2.6 BASIC METABOLIC [id number] 06:54:00 Test Item Value Reference Range Comments SODIUM (BEAKER) (test 137 meq/L 136-145 xkgr=388) POTASSIUM (BEAKER) (test 4.2 meq/L 3.5-5.1 uelg=392) CHLORIDE (BEAKER) (test 106 meq/L 98-107 qaof=598) CO2 (BEAKER) (test 26 meq/L 22-29 keul=615) BLOOD UREA NITROGEN 12 mg/dL 7-21 (BEAKER) (test vhvs=655) CREATININE (BEAKER) (test 0.82 mg/dL 0.57-1.25 ghwo=887) GLUCOSE RANDOM (BEAKER) 103 mg/dL 70-105 (test shzp=697) CALCIUM (BEAKER) (test 8.7 mg/dL 8.4-10.2 rlaa=787) EGFR (BEAKER) (test 96 mL/min/1.73 sq m ESTIMATED GFR IS NOT lfjd=3049) ACCURATE CREATININE CLEARANCE IN PREDICTING GLOMERULAR FILTRATION RATE. ESTIMATED GFR IS NOT APPLICABLE FOR DIALYSIS PATIENTS. CBC W/PLT COUNT & AUTO [id number] 06:07:00 Test Item Value Reference Range Comments WHITE BLOOD CELL COUNT (BEAKER) (test ofvw=915) 7.0 K/ L 3.5-10.5 RED BLOOD CELL COUNT (BEAKER) (test wrss=113) 3.04 M/ L 4.63-6.08 HEMOGLOBIN (BEAKER) (test ynlh=267) 9.5 GM/DL 13.7-17.5 HEMATOCRIT (BEAKER) (test wemn=957) 28.3 % 40.1-51.0 MEAN CORPUSCULAR VOLUME (BEAKER) (test adfx=027) 93.1 fL 79.0-92.2 MEAN CORPUSCULAR HEMOGLOBIN (BEAKER) (test 31.3 pg 25.7-32.2 xcne=130) MEAN CORPUSCULAR HEMOGLOBIN CONC (BEAKER) (test 33.6 GM/DL 32.3-36.5 airo=103) RED CELL DISTRIBUTION WIDTH (BEAKER) (test 12.4 % 11.6-14.4 nirt=869) PLATELET COUNT (BEAKER) (test exsu=411) 280 K/CU MM 150-450 MEAN PLATELET VOLUME (BEAKER) (test iixh=177) 9.6 fL 9.4-12.4 NUCLEATED RED BLOOD CELLS (BEAKER) (test 0 /100 WBC 0-0 snbs=846) NEUTROPHILS RELATIVE PERCENT (BEAKER) (test 63 % scnb=682) LYMPHOCYTES RELATIVE PERCENT (BEAKER) (test 23 % nmof=832) MONOCYTES RELATIVE PERCENT (BEAKER) (test 10 % rxoi=213) EOSINOPHILS RELATIVE PERCENT (BEAKER) (test 3 % wrnh=333) BASOPHILS RELATIVE PERCENT (BEAKER) (test 0 % yuqy=243) NEUTROPHILS ABSOLUTE COUNT (BEAKER) (test 4.39 K/ L 1.78-5.38 bcnq=775) LYMPHOCYTES ABSOLUTE COUNT (BEAKER) (test 1.59 K/ L 1.32-3.57 ygou=641) MONOCYTES ABSOLUTE COUNT (BEAKER) (test 0.72 K/ L 0.30-0.82 ndnh=310) EOSINOPHILS ABSOLUTE COUNT (BEAKER) (test 0.23 K/ L 0.04-0.54 erny=866) BASOPHILS ABSOLUTE COUNT (BEAKER) (test 0.03 K/ L 0.01-0.08 wsab=912) IMMATURE GRANULOCYTES-RELATIVE PERCENT (BEAKER) 1 % 0-1 (test pglc=3958) HEMOGLOBIN AND [id number] 00:25:00 Test Item Value Reference Range Comments HEMOGLOBIN (BEAKER) (test ttin=982) 9.4 GM/DL 13.7-17.5 HEMATOCRIT (BEAKER) (test hfjr=739) 27.5 % 40.1-51.0 CT, PELVIS, W [id number] 23:23:00Requesting CT with IV Contrast. ARTERIAL PHASE to look at vasculature for potential vascular injuryFINAL REPORT CLINICAL HISTORY: Subcutaneous infection in left [...] There is diffuse atherosclerotic calcification of the aortaand lower extremity arteries, similar to previous. There [...] wound but no focal, organized fluid collection tosuggest abscess or hematoma. There is no underlying pseudoaneurysm or definitively identified sourceof bleeding. Atherosclerotic disease as previously described. Signed: Geeta Ramirez MDReport Verified Date/Time: 2017 23:23:16 Reading Location: [address] Reading [address] CT, CTA EXTREMITY, LOWER, [id number] 23:23:00Requesting CTA of bilateral thigh. Arterial phase. To visualize possible arterial injuryFINAL REPORT CLINICAL HISTORY: Subcutaneous infection in left inguinal region, today with new bleeding. Please evaluate for source of bleeding. COMPARISON: 12/23 FINDINGS: Multiple axial images of the pelvis [...] There is diffuse atherosclerotic calcification of the aortaand lower extremity arteries, similar to previous. There [...] wound but no focal, organized fluid collection tosuggest abscess or hematoma. There is no underlying pseudoaneurysm or definitively identified sourceof bleeding. Atherosclerotic disease as previously described. Signed: Geeat Ramirez MDReport Verified Date/Time: 12/30/2017 23:23:16 Reading Location: [address] Reading Room Electronically signed by: GEETA RAMIREZ M.D. on 11:23 PMCT, CTA EXTREMITY, LOWER, [id number] 23:23:00Requesting CTA of bilateral thigh. Arterial phase. To visualize possible arterial injuryFINAL REPORT CLINICAL HISTORY: Subcutaneous infection in left [...] There is diffuse atherosclerotic calcification of the aortaand lower extremity arteries, similar to previous. There [...] wound but no focal, organized fluid collection tosuggest abscess or hematoma. There is no underlying pseudoaneurysm or definitively identified sourceof bleeding. Atherosclerotic disease as previously described. Signed: Geeta Ramirez MDReport Verified Date/Time: 2017 23:23:16 Reading Location: [address] Reading Room POCT- LACTIC ACID, [id number] 17:26:00 Test Item Value Reference Range Comments POC-LACTIC ACID, VENOUS 1.1 mmol/L 0.9-1.7 TESTED AT [facility] [address] (BEAKER) (test ceey=1563) [facility] [address] COMPREHENSIVE METABOLIC [id number] 17:22:00 Test Item Value Reference Range Comments TOTAL PROTEIN (BEAKER) 7.1 gm/dL 6.0-8.3 Specimen slightly (test vguo=120) hemolyzed ALBUMIN (BEAKER) (test 4.1 g/dL 3.5-5.0 Specimen slightly laqb=3206) hemolyzed ALKALINE PHOSPHATASE 72 U/L 40-150 (BEAKER) (test evfv=300) BILIRUBIN TOTAL (BEAKER) 0.5 mg/dL 0.2-1.2 Specimen slightly (test exdp=433) hemolyzed SODIUM (BEAKER) (test 135 meq/L 136-145 krkg=611) POTASSIUM (BEAKER) (test 4.2 meq/L 3.5-5.1 Specimen slightly rufc=268) hemolyzed CHLORIDE (BEAKER) (test 104 meq/L 98-107 awsy=965) CO2 (BEAKER) (test 21 meq/L 22-29 emvk=269) BLOOD UREA NITROGEN 15 mg/dL 7-21 (BEAKER) (test yvja=110) CREATININE (BEAKER) (test 0.91 mg/dL 0.57-1.25 Specimen slightly ryln=625) hemolyzed GLUCOSE RANDOM (BEAKER) 114 mg/dL 70-105 (test gysl=779) CALCIUM (BEAKER) (test 9.3 mg/dL 8.4-10.2 qoeu=348) AST (SGOT) (BEAKER) (test 23 U/L 5-34 Specimen slightly fmdv=318) hemolyzed ALT (SGPT) (BEAKER) (test 29 U/L 6-55 Specimen slightly twau=863) hemolyzed EGFR (BEAKER) (test 85 mL/min/1.73 sq m ESTIMATED GFR IS NOT luge=5909) ACCURATE CREATININE CLEARANCE IN PREDICTING GLOMERULAR FILTRATION RATE. ESTIMATED GFR IS NOT APPLICABLE FOR DIALYSIS PATIENTS. [id number] 17:11:00 Test Item Value Reference Range Comments PROTIME (BEAKER) (test dpoq=944) 13.5 seconds 11.7-14.7 INR (BEAKER) (test wimm=704) 1.0 <=5.9 PARTIAL THROMBOPLASTIN TIME (BEAKER) (test 26.8 seconds 22.5-36.0 myit=829) RECOMMENDED COUMADIN/WARFARIN INR THERAPY RANGESSTANDARD DOSE: 2.0 - 3.0 Includes: PROPHYLAXIS forvenous thrombosis, systemic embolization; TREATMENT for venous thrombosis and/or pulmonary embolus.HIGH RISK: Target INR is 2.5-3.5 for patients with mechanical heart valves.CBC W/PLT COUNT & AUTO [id number] 17:03:00 Test Item Value Reference Range Comments WHITE BLOOD CELL COUNT (BEAKER) (test yegj=378) 9.4 K/ L 3.5-10.5 RED BLOOD CELL COUNT (BEAKER) (test lmet=420) 3.79 M/ L 4.63-6.08 HEMOGLOBIN (BEAKER) (test rkya=113) 11.6 GM/DL 13.7-17.5 HEMATOCRIT (BEAKER) (test iiob=411) 35.1 % 40.1-51.0 MEAN CORPUSCULAR VOLUME (BEAKER) (test gvwo=777) 92.6 fL 79.0-92.2 MEAN CORPUSCULAR HEMOGLOBIN (BEAKER) (test 30.6 pg 25.7-32.2 guys=925) MEAN CORPUSCULAR HEMOGLOBIN CONC (BEAKER) (test 33.0 GM/DL 32.3-36.5 qoii=891) RED CELL DISTRIBUTION WIDTH (BEAKER) (test 12.2 % 11.6-14.4 wvns=230) PLATELET COUNT (BEAKER) (test ypnw=678) 407 K/CU MM 150-450 MEAN PLATELET VOLUME (BEAKER) (test nxjr=684) 10.0 fL 9.4-12.4 NUCLEATED RED BLOOD CELLS (BEAKER) (test 0 /100 WBC 0-0 xesr=959) NEUTROPHILS RELATIVE PERCENT (BEAKER) (test 70 % cmcb=291) LYMPHOCYTES RELATIVE PERCENT (BEAKER) (test 17 % lgyo=895) MONOCYTES RELATIVE PERCENT (BEAKER) (test 9 % aoju=995) EOSINOPHILS RELATIVE PERCENT (BEAKER) (test 3 % wlcj=111) BASOPHILS RELATIVE PERCENT (BEAKER) (test 1 % klac=797) NEUTROPHILS ABSOLUTE COUNT (BEAKER) (test 6.51 K/ L 1.78-5.38 xqns=339) LYMPHOCYTES ABSOLUTE COUNT (BEAKER) (test 1.60 K/ L 1.32-3.57 nzst=083) MONOCYTES ABSOLUTE COUNT (BEAKER) (test 0.83 K/ L 0.30-0.82 dgpz=410) EOSINOPHILS ABSOLUTE COUNT (BEAKER) (test 0.27 K/ L 0.04-0.54 ctlx=856) BASOPHILS ABSOLUTE COUNT (BEAKER) (test 0.05 K/ L 0.01-0.08 wdju=552) IMMATURE GRANULOCYTES-RELATIVE PERCENT (BEAKER) 1 % 0-1 (test ffqj=5769) SURGICALLY OBTAINED CULTURE + GRAM [id number] 11:00:00 Test Item Value Reference Range Comments CULTURE (BEAKER) (test STAPHYLOCOCCUS AUREUS 3+ Staphylococcus jnmj=9723) aureus Clindamycin (test code=10) Erythromycin (test code=4) Linezolid (test code=40) Nitrofurantoin (test code=23) Oxacillin (test code=14) Rifampin (test code=43) Tetracycline (test code=2) Trimethoprim + Sulfamethoxazole (test code=47) Vancomycin (test code=13) CULTURE (BEAKER) (test 1+ Staphylococcus lsxc=1071) aureusof a second type GRAM STAIN RESULT 3+ WBCs (BEAKER) (test rvhx=1114) GRAM STAIN RESULT 1+ gram positive cocci (BEAKER) (test in pairs and clusters rtlq=577005) ANAEROBIC [id number] 03:05:00 Test Item Value Reference Range Comments CULTURE (BEAKER) (test hbkw=4790) No anaerobes isolated BASIC METABOLIC [id number] 06:22:00 Test Item Value Reference Range Comments SODIUM (BEAKER) (test 142 meq/L 136-145 owaj=443) POTASSIUM (BEAKER) (test 4.3 meq/L 3.5-5.1 paie=291) CHLORIDE (BEAKER) (test 107 meq/L 98-107 pada=149) CO2 (BEAKER) (test 27 meq/L 22-29 blok=992) BLOOD UREA NITROGEN 10 mg/dL 7-21 (BEAKER) (test lpna=536) CREATININE (BEAKER) (test 0.80 mg/dL 0.57-1.25 ttnh=930) GLUCOSE RANDOM (BEAKER) 104 mg/dL 70-105 (test tjtp=134) CALCIUM (BEAKER) (test 9.2 mg/dL 8.4-10.2 aoqv=872) EGFR (BEAKER) (test 99 mL/min/1.73 sq m ESTIMATED GFR IS NOT gsdq=6876) ACCURATE CREATININE CLEARANCE IN PREDICTING GLOMERULAR FILTRATION RATE. ESTIMATED GFR IS NOT APPLICABLE FOR DIALYSIS PATIENTS. CBC W/PLT COUNT & AUTO [id number] 05:57:00 Test Item Value Reference Range Comments WHITE BLOOD CELL COUNT (BEAKER) (test aoqx=428) 4.8 K/ L 3.5-10.5 RED BLOOD CELL COUNT (BEAKER) (test pyto=413) 4.06 M/ L 4.63-6.08 HEMOGLOBIN (BEAKER) (test eifz=101) 12.5 GM/DL 13.7-17.5 HEMATOCRIT (BEAKER) (test srsn=987) 38.1 % 40.1-51.0 MEAN CORPUSCULAR VOLUME (BEAKER) (test zubp=234) 93.8 fL 79.0-92.2 MEAN CORPUSCULAR HEMOGLOBIN (BEAKER) (test 30.8 pg 25.7-32.2 xxey=713) MEAN CORPUSCULAR HEMOGLOBIN CONC (BEAKER) (test 32.8 GM/DL 32.3-36.5 vyhf=728) RED CELL DISTRIBUTION WIDTH (BEAKER) (test 12.2 % 11.6-14.4 bipu=133) PLATELET COUNT (BEAKER) (test ejrs=720) 254 K/CU MM 150-450 MEAN PLATELET VOLUME (BEAKER) (test hous=528) 9.7 fL 9.4-12.4 NUCLEATED RED BLOOD CELLS (BEAKER) (test 0 /100 WBC 0-0 vocb=217) NEUTROPHILS RELATIVE PERCENT (BEAKER) (test 53 % wrxz=483) LYMPHOCYTES RELATIVE PERCENT (BEAKER) (test 24 % ktlu=857) MONOCYTES RELATIVE PERCENT (BEAKER) (test 15 % eurm=344) EOSINOPHILS RELATIVE PERCENT (BEAKER) (test 7 % nukn=570) BASOPHILS RELATIVE PERCENT (BEAKER) (test 1 % wjtv=215) NEUTROPHILS ABSOLUTE COUNT (BEAKER) (test 2.53 K/ L 1.78-5.38 exeg=995) LYMPHOCYTES ABSOLUTE COUNT (BEAKER) (test 1.14 K/ L 1.32-3.57 wjob=720) MONOCYTES ABSOLUTE COUNT (BEAKER) (test 0.70 K/ L 0.30-0.82 snxc=341) EOSINOPHILS ABSOLUTE COUNT (BEAKER) (test 0.35 K/ L 0.04-0.54 rtia=048) BASOPHILS ABSOLUTE COUNT (BEAKER) (test 0.03 K/ L 0.01-0.08 glju=138) IMMATURE GRANULOCYTES-RELATIVE PERCENT (BEAKER) 0 % 0-1 (test yeig=1283) VANCOMYCIN LEVEL, [id number] 16:02:00 Test Item Value Reference Range Comments VANCOMYCIN TROUGH (BEAKER) (test lhix=749) 11.5 ug/mL 10.0-20.0 If trough > 20 hold next dose and notify pharmacist.BASIC METABOLIC [id number] 08:54:00 Test Item Value Reference Range Comments SODIUM (BEAKER) (test 138 meq/L 136-145 lvck=078) POTASSIUM (BEAKER) (test 3.6 meq/L 3.5-5.1 ezlr=050) CHLORIDE (BEAKER) (test 100 meq/L 98-107 rjsp=709) CO2 (BEAKER) (test 27 meq/L 22-29 zlot=753) BLOOD UREA NITROGEN 12 mg/dL 7-21 (BEAKER) (test vtgj=613) CREATININE (BEAKER) (test 0.87 mg/dL 0.57-1.25 cwky=255) GLUCOSE RANDOM (BEAKER) 112 mg/dL 70-105 (test nqht=830) CALCIUM (BEAKER) (test 9.6 mg/dL 8.4-10.2 zflp=700) EGFR (BEAKER) (test 90 mL/min/1.73 sq m ESTIMATED GFR IS NOT atdd=0363) ACCURATE CREATININE CLEARANCE IN PREDICTING GLOMERULAR FILTRATION RATE. ESTIMATED GFR IS NOT APPLICABLE FOR DIALYSIS PATIENTS. CBC (HEMOGRAM ONLY)2017-12-25 08:49:00 Test Item Value Reference Range Comments WHITE BLOOD CELL COUNT (BEAKER) (test jegx=518) 6.4 K/ L 3.5-10.5 RED BLOOD CELL COUNT (BEAKER) (test fzdk=626) 4.04 M/ L 4.63-6.08 HEMOGLOBIN (BEAKER) (test yjma=303) 12.4 GM/DL 13.7-17.5 HEMATOCRIT (BEAKER) (test vama=220) 37.3 % 40.1-51.0 MEAN CORPUSCULAR VOLUME (BEAKER) (test nvyg=027) 92.3 fL 79.0-92.2 MEAN CORPUSCULAR HEMOGLOBIN (BEAKER) (test 30.7 pg 25.7-32.2 dyks=530) MEAN CORPUSCULAR HEMOGLOBIN CONC (BEAKER) (test 33.2 GM/DL 32.3-36.5 wtso=453) RED CELL DISTRIBUTION WIDTH (BEAKER) (test 12.1 % 11.6-14.4 uoye=669) PLATELET COUNT (BEAKER) (test vnsm=277) 247 K/CU MM 150-450 MEAN PLATELET VOLUME (BEAKER) (test llnv=915) 10.0 fL 9.4-12.4 NUCLEATED RED BLOOD CELLS (BEAKER) (test 0 /100 WBC 0-0 lkxd=572) [id number] 08:43:00 Test Item Value Reference Range Comments PARTIAL THROMBOPLASTIN TIME (BEAKER) (test 20.5 seconds 22.5-36.0 etxw=853) PROTHROMBIN [id number] 08:19:00 Test Item Value Reference Range Comments PROTIME (BEAKER) (test vvoq=879) 13.9 seconds 11.7-14.7 INR (BEAKER) (test ybjy=664) 1.1 <=5.9 RECOMMENDED COUMADIN/WARFARIN INR THERAPY RANGESSTANDARD DOSE: 2.0 - 3.0 Includes: PROPHYLAXIS forvenous thrombosis, systemic embolization; TREATMENT for venous thrombosis and/or pulmonary embolus.HIGH RISK: Target INR is 2.5-3.5 for patients with mechanical heart valves.CT, CTA AAA, W/ RICHARD.EXT.[id number] 04:46:00Addendum BeginsREPORT STATUS:A 3-D imaging on an independent workstation was also performed for optimal visualization of the arterial system in accordance with the aortogram protocol. Signed: Geeta Ramirez MDReport Verified Date/Time: 12/25/2017 04:46:21 Reading Location: [address] Reading RoomAddendum EndsFINAL REPORT CLINICAL HISTORY: Status post angiography with [...] and/or use of the iterative reconstruction technique. Comparison :None. Vascular: There is a heterogeneous, nonorganized left inguinal subcutaneous fluid collection, probably a hematomagiven the patient's history. This nonorganized fluid collection is surrounded by subcutaneous fat stranding and measures approximately 5.2 x 4.2 cm. There are several adjacent cysts and enhancing lymphnodes in the left inguinal region. A small enhancing focus at the superficial margin of the collection measures 8 mm and may reflect an enhancing lymph node or a small pseudoaneurysm. It is not a significant distance from the underlying common femoral and superficial femoral arteries. There is diffuseatherosclerotic calcification. No aortic aneurysm or dissection is [...] calcification which limits evaluation of its patency, however,it appears grossly patent and the trifurcation appears [...] femoral artery bifurcation is patent but there ismixed density plaque resulting in 75% narrowing of [...] described. Partially visualized, moderate hiatal hernia. Signed: Geeta Ramirez MDReport Verified Date/Time: 12/23/201723:59:41 Reading Location: [address] Reading Room URINALYSIS W/ REFLEX URINE [id number] 21:56:00 Test Item Value Reference Range Comments COLOR (BEAKER) (test uswc=001) Yellow CLARITY (BEAKER) (test tohf=062) Clear SPECIFIC GRAVITY UA (BEAKER) (test zead=234) 1.007 1.001-1.035 PH UA (BEAKER) (test pvrh=676) 5.0 5.0-8.0 PROTEIN UA (BEAKER) (test woyu=191) Negative Negative GLUCOSE UA (BEAKER) (test lqdy=550) Negative Negative KETONES UA (BEAKER) (test spem=988) Negative Negative BILIRUBIN UA (BEAKER) (test wwpj=167) Negative Negative BLOOD UA (BEAKER) (test syhw=604) Trace Negative NITRITE UA (BEAKER) (test gdni=638) Negative Negative LEUKOCYTE ESTERASE UA (BEAKER) (test bjfp=745) Negative Negative UROBILINOGEN UA (BEAKER) (test uafi=709) 0.2 mg/dL 0.2-1.0 RBC UA (BEAKER) (test twfh=820) < /HPF WBC UA (BEAKER) (test vnnj=207) 3 /HPF MUCUS (BEAKER) (test ofqo=9588) Rare SQUAMOUS EPITHELIAL (BEAKER) (test yhps=271) 1 /HPF SOURCE(BEAKER) (test nakw=2530) CBC W/PLT COUNT & AUTO [id number] 21:48:00 Test Item Value Reference Range Comments WHITE BLOOD CELL COUNT (BEAKER) (test jpel=260) 10.3 K/ L 3.5-10.5 RED BLOOD CELL COUNT (BEAKER) (test tasn=879) 4.41 M/ L 4.63-6.08 HEMOGLOBIN (BEAKER) (test itqs=024) 13.5 GM/DL 13.7-17.5 HEMATOCRIT (BEAKER) (test geku=464) 41.2 % 40.1-51.0 MEAN CORPUSCULAR VOLUME (BEAKER) (test onfi=232) 93.4 fL 79.0-92.2 MEAN CORPUSCULAR HEMOGLOBIN (BEAKER) (test 30.6 pg 25.7-32.2 nfos=430) MEAN CORPUSCULAR HEMOGLOBIN CONC (BEAKER) (test 32.8 GM/DL 32.3-36.5 oztd=822) RED CELL DISTRIBUTION WIDTH (BEAKER) (test 12.1 % 11.6-14.4 cbza=597) PLATELET COUNT (BEAKER) (test xdty=757) 263 K/CU MM 150-450 MEAN PLATELET VOLUME (BEAKER) (test elvx=626) 9.9 fL 9.4-12.4 NUCLEATED RED BLOOD CELLS (BEAKER) (test 0 /100 WBC 0-0 xwwr=540) [id number] 21:43:00 Test Item Value Reference Range Comments PROTIME (BEAKER) (test pmbi=013) 13.4 seconds 11.7-14.7 INR (BEAKER) (test mlhp=775) 1.0 <=5.9 PARTIAL THROMBOPLASTIN TIME (BEAKER) (test 24.7 seconds 22.5-36.0 oteo=631) RECOMMENDED COUMADIN/WARFARIN INR THERAPY RANGESSTANDARD DOSE: 2.0 - 3.0 Includes: PROPHYLAXIS forvenous thrombosis, systemic embolization; TREATMENT for venous thrombosis and/or pulmonary embolus.HIGH RISK: Target INR is 2.5-3.5 for patients with mechanical heart valves.COMPREHENSIVE METABOLIC [id number] 21:38:00 Test Item Value Reference Range Comments TOTAL PROTEIN (BEAKER) 7.9 gm/dL 6.0-8.3 (test vdel=184) ALBUMIN (BEAKER) (test 4.6 g/dL 3.5-5.0 hjuc=9167) ALKALINE PHOSPHATASE 103 U/L 40-150 (BEAKER) (test pwvc=008) BILIRUBIN TOTAL (BEAKER) 0.8 mg/dL 0.2-1.2 (test hubf=021) SODIUM (BEAKER) (test 139 meq/L 136-145 gxgo=224) POTASSIUM (BEAKER) (test 3.7 meq/L 3.5-5.1 wfnc=848) CHLORIDE (BEAKER) (test 99 meq/L 98-107 lfcf=826) CO2 (BEAKER) (test 28 meq/L 22-29 hydn=556) BLOOD UREA NITROGEN 11 mg/dL 7-21 (BEAKER) (test eaxg=787) CREATININE (BEAKER) (test 0.96 mg/dL 0.57-1.25 addd=291) GLUCOSE RANDOM (BEAKER) 98 mg/dL 70-105 (test xqxc=330) CALCIUM (BEAKER) (test 10.1 mg/dL 8.4-10.2 xkic=465) AST (SGOT) (BEAKER) (test 48 U/L 5-34 xvdz=367) ALT (SGPT) (BEAKER) (test 64 U/L 6-55 akyq=698) EGFR (BEAKER) (test 80 mL/min/1.73 sq m ESTIMATED GFR IS NOT znsv=5708) ACCURATE CREATININE CLEARANCE IN PREDICTING GLOMERULAR FILTRATION RATE. ESTIMATED GFR IS NOT APPLICABLE FOR DIALYSIS PATIENTS. LACTIC ACID, VENOUS, WHOLE [id number] 21:35:00 Test Item Value Reference Range Comments LACTATE BLOOD VENOUS (2) (BEAKER) (test 1.2 mmol/L 0.5-2.2 [id number]) Effective 12/19/2015: Units/Reference Range ChangeNew: 0.5-2.2 mmol/L Previous: 5 -20 mg/dL
[2018-02-03] MEDS ORDERED: ATROPINE SULF 1 MG/10 ML SYR IV ONE (07:11)
[2018-02-03] MEDS ORDERED: HEPA 1000U/500MLS 2,000 UNIT/1,000 ML BAG IV ONE (07:11)
[2018-02-03] MEDS ORDERED: NITROGLYCERIN/D5W 25 MG/250 ML BTL IV ONE (07:11)
[2018-02-03] MEDS ORDERED: HEPARIN 5000 UNIT/ML 1 ML VIAL ONE (07:11)
[2018-02-03] MEDS ORDERED: NICARDIPINE HCL 25 MG/10 ML IV ONE (07:11)
[2018-02-03] MEDS ORDERED: LIDOCAINE 1% 20 ML MDV ONE (07:11)
[2018-02-03] MEDS ORDERED: NA CHLORIDE 0.9% 0 ML ONE ×2 (07:12→09:29)
[2018-02-03] MEDS ORDERED: NA CHLORIDE 0.9% 500 ML ONE (07:19)
[2018-02-03] MEDS ORDERED: MIDAZOLAM HCL 2 MG/2 ML INJ ONE ×2 (07:59→08:24)
[2018-02-03] MEDS ORDERED: FENTANYL CITR 100 MCG/2 ML ONE (07:59)
[2018-02-03] MEDS ORDERED: NA CHLORIDE 0.9% 50 ML ONE (10:03)
[2018-02-03] MEDS ORDERED: ZOLPIDEM TARTRATE 5 MG TABLET PO PRN (10:07)
[2018-02-03] MEDS ORDERED: NITROGLYCERIN 0.4 MG/TAB SL PRN (14:00)
[2018-02-03] MEDS ORDERED: NA CHLORIDE 0.9% 1,000 ML IV SCH (14:00)
[2018-02-03] MEDS ORDERED: ACETAMINOPHEN 325 MG TABLET PO PRN (14:00)
[2018-02-03 15:33] VITALS: BMI 29.7
--- NOTE | 2018-02-03 20:17 | OP ---
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 Findings: The patient had diffuse plaquing and calcification throughout the left system. There was no stenosis more than 40% there. The right coronary was diffusely diseased. There was a total occlu romeo. There was SALVADOR-3 flow, although to reach that amount of collateral flow, it involved both righ t ventricular branch and left coronary collaterals. It appeared to be a chronic occlusion in the mid to distal junction of the RCA. An attempt was made to dilate it. We were able to cross it with a w rayray, but no attempt to pass a balloon or another catheter was helpful, so we resigned ourself to the fact that it is an unsuccessful attempt at opening of chronic total occlusion with the patient stable . 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 He had an abnormal Cardiolite stress test showing mild inferior ischemia. He was sedated with Versed and fenta nyl. Prepared and draped in the usual sterile fashion. Right radial approach was used. We entered the artery with a 21-gauge needle, cannulated it with a 0.021 inch diameter guidewire, placed the Ter umo sheath, flushed it, gave the radial cocktail consisting of nicardipine, heparin and nitroglycerin . We were able to angiogram everything with a TIG catheter. It was guided to the ascending aorta us ing a Terumo Glidewire with a short radius J-tip. Decision was made to attempt the RCA occlusion. W e used an , it successfully allowed us to dilate the lesion with some difficulty. The wire crossed, but no balloon would cross, so we exchanged for a different guide, multipurpose A2. This l ikewise was unable to provide enough support to push hard. Mild pushing, which is probably the appro priate amount, and may be should not be exceeded anyway, failed to get a balloon to even cross. The balloon we used was a 1.5 x 8 Emerge [id number] balloon. The wire was a Sarah. Before attemptin g the coronary intervention, we gave Angiomax. We demonstrated active clotting time greater than 300 seconds. At the end of the procedure, all catheters and wires were removed. Final angiogram was ta sahra and the catheter was removed over a J-wire. The sheath was removed and the arteriotomy closed wi th a TR band. GENNARO/ERINN Voice ID: [id number] Report ID: [id number]
[2018-02-03] MEDS ORDERED: ATORVASTATIN 20 MG TAB PO SCH (21:00)
[2018-02-04 05:16] LABS: Hematocrit 38.2 % (39.6-49.0); MCH 30.4 pg (27.0-35.0); MCV 91.5 fL (80-100); MPV 8.7 fL (7.6-11.3); RBC Red Blood Cell Count 4.18 M/uL (4.33-5.43)
[2018-02-04] MEDS ORDERED: METOPROLOL XL 50 MG TAB PO SCH (06:00)
[2018-02-04] MEDS ORDERED: CLOPIDOGREL 75 MG TABLET PO SCH (09:00)
[2018-02-04] MEDS ORDERED: ASPIRIN EC 81 MG TAB PO SCH (09:00)
[2018-02-04] MEDS ORDERED: ESCITALOPRAM 20 MG TAB PO SCH (09:00)
[2018-02-04] MEDS ORDERED: AMLODIPINE 5 MG TAB PO SCH (09:00)
[2018-02-04] MEDS ORDERED: ISOSORBIDE MONO SR 30 MG TAB PO SCH (09:00)
--- NOTE | 2018-02-04 10:50 | EKG ---
Test Date: 2018-02-04 Test Time: 08:02:41 Work Counselor: JAZMYNE MEASUREMENT RESULTS: Intervals: Rate: 51 WY: 190 QRSD: 88 QT: 446 QTc: 411 [place]: P: 45 WY: 190 QRS: 51 T: 69 INTERPRETIVE STATEMENTS: Sinus bradycardia Nonspecific T wave abnormality Abnormal ECG Compared to ECG 12/03/2000 13:00:00 T-wave abnormality now present Right-axis deviation no longer present Electronically Signed On 02-04-18 10:49:27 CDT by Talon Barth
[2018-02-04 11:47] VITALS: BP 140/70
[2018-02-04 11:59] VITALS: TEMP 98.8; O2SAT 99
--- NOTE | 2018-02-04 19:06 | DS ---
Date of Discharge: 02/04/2018 Going going home from outpatient in a bed status. He was in our hospital yesterday for cardiac cath. 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 Unable to pass a balloon, so he remains with a totally occluded right coronary, [place] [employer] Class I angina. His medications on discharge will be Lipitor 80 once daily, aspirin 325 mg once daily, amlodipine 5 mg b.i.d., metoprolol 50 b.i.d., isosorbide mononitrate 30 daily, clopidogrel 75 mg daily, and escitalopram 20 mg daily. We will have followup in my office. His Lipitor dose increased. GENNARO/ERINN Voice ID: [id number] Report ID: [id number] MTDD
--- NOTE | 2018-02-05 01:25 | PN ---
The patient was admitted on 02/03/[address] Duke as an outpatient for a heart catheterization. T he catheterization showed a severe stenosis in the RCA. The patient had a wire that crossed the lesi on and a 1.5 balloon that was able to cross the lesion, but the angioplasty was unsuccessful in gener al. The patient tolerated the procedure well. No complications overnight. No telemetry issues. Th e patient had no complaint. Insertion site was intact without any hematoma or bruising. Good distal pulses. The patient will be sent home today and he will see Dr. Duke in 2 weeks. TIMMY/ERINN Voice ID: [id number] Report ID: [id number]
== END 2018-02-04 11:53 | disposition home or self-care (01) ==
LOC: CCL 07:00 → 4TH 11:40 → CCL 02-04 11:53
PROVIDERS: ATTEND Internal Medicine
PROC: 4A023N7 Measurement of Cardiac Sampling and Pressure, Left Heart, Percutaneous Approach (ICD-10-PCS; principal; 2018-02-03)
PROC: B201YZZ Plain Radiography of Multiple Coronary Arteries using Other Contrast (ICD-10-PCS; 2018-02-03)
PROC: B205YZZ Plain Radiography of Left Heart using Other Contrast (ICD-10-PCS; 2018-02-03)
PROC: 02703ZZ Dilation of Coronary Artery, One Artery, Percutaneous Approach (ICD-10-PCS; 2018-02-03)
DX: I25.118 Atherosclerotic heart disease of native coronary artery with other forms of angina pectoris (principal); I25.82 Chronic total occlusion of coronary artery; I70.213 Atherosclerosis of native arteries of extremities with intermittent claudication, bilateral legs; I10 Essential (primary) hypertension; F17.210 Nicotine dependence, cigarettes, uncomplicated; E78.2 Mixed hyperlipidemia; Z88.0 Allergy status to penicillin
CPT/HCPCS: 36415; 71046; 80048; 85025; 85027; 85347; 85610; 85730; 92920; 93005; 93458; C1725; C1893; J0583; J1644; J2250; J3010; J7030